=== PATIENT | female | born 1990 ===

== ENCOUNTER 2016-06-30 09:04 | Emergency (ER) | payer OTHER ==
[2016-06-30 09:32] VITALS: BP 111/73
--- NOTE | 2016-06-30 09:46 | UC ---
Respiratory Complaint HPI - HPI Summary HPI Summary: waxing and waning uri for 7-10 days, congestion, cough, sorethroat,body aches - History of Current Complaint Chief Complaint: UCRespiratory Stated Complaint: SINUS COMPLAINT Time Seen by Provider: 06/30/16 09:41 Hx Obtained From: Patient Hx Last Menstrual Period: unknown- lst one two months ago, neg preg test per pt ?: No Onset/Duration: Gradual Onset, Lasting Days - 7-10, Still Present Timing: Constant Severity Initially: Moderate Severity Currently: Moderate Pain Intensity: 4 Pain Scale Used: 0-10 Numeric Character: Cough: Nonproductive Aggravating Factors: Nothing Associated Signs And Symptoms: Positive: Chills, URI, Nasal Congestion. Negative: Sinus Discomfort - Allergies/Home Medications Allergies/Adverse Reactions: Allergies Allergy/AdvReac Type Severity Reaction Status Date / Time Penicillins [PCN] Allergy Hives Verified 06/30/16 09:24 Home Medications: Home Medications Levonorgestrel & Eth Estradiol [Jessica-28 0.15-30 mg-Mcg] 1 tab PO DAILY [History Confirmed 06/30/16] PMH/Surg Hx/FS Hx/Imm Hx Previously Healthy: Yes - Surgical History Surgical History: None - Family History Known Family History: Positive: None - Social History Occupation: Employed Full-time Lives: With Family Alcohol Use: Occasionally Substance Use Type: None Smoking Status (MU): Never Smoked Tobacco - Immunization History Most Recent Influenza Vaccination: 2015 Review of Systems Constitutional: Fever - subjective, Chills, Fatigue Skin: Negative Eyes: Negative ENT: Sore Throat, Ear Ache, Nasal Discharge Respiratory: Cough Cardiovascular: Negative Gastrointestinal: Negative Genitourinary: Negative Motor: Negative Neurovascular: Negative Musculoskeletal: Negative Neurological: Negative Psychological: Negative All Other Systems Reviewed And Are Negative: Yes Physical Exam Triage Information Reviewed: Yes Appearance: No Pain Distress, Well-Nourished, Ill-Appearing - mild Vital Signs: Initial Vital Signs Temp 98.1 F 06/30/16 09:26 Pulse 90 06/30/16 09:26 Resp 18 06/30/16 09:26 BP 111/73 06/30/16 09:26 Pulse Ox 97 06/30/16 09:26 Vital Signs Reviewed: Yes Eye Exam: Normal Eyes: Positive: Conjunctiva Clear ENT Exam: Normal ENT: Positive: Normal ENT inspection, Hearing grossly normal, Pharynx normal, Nasal congestion, Nasal drainage, TMs normal. Negative: Tonsillar swelling, Tonsillar exudate, Trismus, Muffled/hoarse voice Dental Exam: Normal Neck exam: Normal Neck: Positive: Supple, Nontender, No Lymphadenopathy Respiratory Exam: Normal Respiratory: Positive: Chest non-tender, Lungs clear, Normal breath sounds, No respiratory distress, No accessory muscle use Cardiovascular Exam: Normal Cardiovascular: Positive: RRR, No Murmur, Pulses Normal, Brisk Capillary Refill Abdominal Exam: Normal Abdomen Description: Positive: Nontender, No Organomegaly, Soft Bowel Sounds: Positive: Present Musculoskeletal Exam: Normal Neurological Exam: Normal Neurological: Positive: Alert Psychological Exam: Normal Skin Exam: Normal UC Diagnostic Evaluation - Laboratory O2 Sat by Pulse Oximetry: 97 Respiratory Course/Dx - Course Course Of Treatment: increase fluids, tylenol, ibuprofen rest, otc treatments for congestion recheck prn - Differential Dx/Diagnosis Differential Diagnosis/HQI/PQRI: Asthma, Laryngitis, Lower Resp Infection Provider Diagnoses: URI, Viral Illness Discharge - Discharge Plan Condition: Stable Disposition: HOME Patient Education Materials: Ibuprofen (By mouth), Upper Respiratory Infection (ED), Viral Syndrome (ED) Referrals: [facility] [Outside] - If Needed No Primary Care Phys,NOPCP [Primary Care Provider] -
== END 2016-06-30 10:05 | disposition home or self-care (01) ==
LOC: UCEAST 09:04
DX: J06.9 Acute upper respiratory infection, unspecified (principal); B34.9 Viral infection, unspecified; Z88.0 Allergy status to penicillin
CPT/HCPCS: 99201; G0463

== ENCOUNTER 2016-07-03 09:51 | Emergency (ER) | payer OTHER ==
[2016-07-03 10:08] VITALS: BP 140/93
--- NOTE | 2016-07-03 11:12 | UC ---
Justin Erazo Michael, scribed for Trupti Domínguez MD on 07/03/16 at 1053 . General HPI - HPI Summary HPI Summary: 25 y/o female was seen at [facility] on 06/30/16 for waxing and waning URI, chest congestion, cough, sore throat, and myalgia that started on 06/24/16. She was dx with URI and viral illness. The patient was advised to take Ibuprofen, Tylenol, increase her fluid intake, increase amount of rest, and to take OTC medication for congestion. She was advised to return if her symptoms worsened. Currently at Urgent Care, the pt reports that her sx were alleviating until 07/02. Since the , the pt has had an increase of ear pressure, SMITH, and sinus discomfort. She also c/o diaphoresis and denies a fever. The pt took her temperature and it was 98.8. The pt has used a Neti Pot and followed her instructions from her last visit on 06/30/16. - History of Current Complaint Chief Complaint: UCRespiratory Stated Complaint: SINUS CONGESTION Time Seen by Provider: 07/03/16 10:35 Hx Obtained From: Patient, Medical Records Onset/Duration: Gradual Onset, Lasting Weeks, Still Present Timing: Constant Onset Severity: Moderate Current Severity: Moderate Pain Location at: SMITH Aggravating: spontaneous Associated Signs & Symptoms: Positive: Diaphoresis, Headache, Other - sinus discomfort. ear pressure.. Negative: Fever - Allergy/Home Medications Allergies/Adverse Reactions: Allergies Allergy/AdvReac Type Severity Reaction Status Date / Time Penicillins [PCN] Allergy Hives Verified 07/03/16 10:08 Home Medications: Home Medications Huzoawk-Zafnixnkqxvgw-Pfpvbope [Excedrin Migraine] 2 tab PO PRN 07/03/16 [ History] PMH/Surg Hx/FS Hx/Imm Hx Previously Healthy: Yes - pt denies a significant PMHx - Surgical History Surgical History: None - Family History Known Family History: Negative: Respiratory Disease Family History: pt denies a significant FHx - Social History Occupation: Employed Full-time Lives: With Family Alcohol Use: Occasionally Substance Use Type: None Smoking Status (MU): Never Smoked Tobacco - Immunization History Most Recent Influenza Vaccination: 2016 Review of Systems Constitutional: Negative - fever, Other - diaphoresis ENT: Ear Ache, Other - sinus discomfort Neurological: Headache All Other Systems Reviewed And Are Negative: Yes Physical Exam Triage Information Reviewed: Yes Vital Signs: Initial Vital Signs Temp 98.5 F 07/03/16 09:59 Pulse 80 07/03/16 09:59 Resp 16 07/03/16 09:59 BP 140/93 07/03/16 09:59 Pulse Ox 97 07/03/16 09:59 Vital Signs Reviewed: Yes - Additional Comments Appearance: Well-appearing, no pain distress, Well-nourished Eyes: Conjunctiva clear ENT: No tonsillar swelling and exudate. TMs nml. pharyngeal erythema. Ethmoid and maxillary sinus tenderness. bilateral turbinate swelling and erythema-equal on both sides. Neck: Supple Respiratory: Lungs clear, Normal breath sounds, no respiratory distress Cardio: RRR, No murmur, pulses normal, brisk capillary refill Musculoskeletal: Strength Intact, ROM intact Neuro: Alert, muscle tone normal Psychological: Normal Skin: Normal Course/Dx - Differential Dx - Multi-Symptom Differential Diagnoses: Other - bronchitis, sinusitis, URI Provider Diagnoses: acute sinusitis Discharge - Discharge Plan Condition: Stable Disposition: HOME Prescriptions: Cefdinir 300 mg PO BID #20 cap Fluticasone NASAL SPRAY 50MCG* [Flonase NASAL SPRAY 50MCG*] 2 spray BOTH NARES DAILY #1 btl Patient Education Materials: Sinusitis (ED) Referrals: [facility] [Outside] The documentation as recorded by the Justin ibanez Michael accurately reflects the service I personally performed and the decisions made by me, Trupti Domínguez MD.
== END 2016-07-03 11:12 | disposition home or self-care (01) ==
LOC: UCEAST 09:51
DX: J01.90 Acute sinusitis, unspecified (principal); R03.0 Elevated blood-pressure reading, without diagnosis of hypertension; Z88.0 Allergy status to penicillin
CPT/HCPCS: 99212; G0463